=== PATIENT | male | born 1940 ===

== ENCOUNTER 2017-01-01 05:13 | Day surgery (SDC) | payer MEDICARE, MEDICAID ==
--- NOTE | 2016-12-31 16:30 | Pre-op HX & Phy Repo 2 SIG ---
DATE OF ADMISSION: 01/01/2017 DATE OF SURGERY: 01/01/2017. PREOPERATIVE DIAGNOSIS: Dense epiretinal membrane, left eye. BRIEF NOTE: This is a first [place] admission for this patient who is a very nice 76-year-old gentleman with decreased vision in the left eye related to a macular pucker. PAST OCULAR HISTORY: Remarkable for cataract surgery done in the left eye in 09/2014. He noted the vision did not significantly improve and on examination has been found to have a dense epiretinal membrane. PAST MEDICAL HISTORY: Negative for diabetes and hypertension according to the patient. ALLERGIES: He has no allergies. SOCIAL HISTORY: He does not smoke and drinks occasionally. MEDICATIONS: He is currently on topical Durezol and Cipro ophthalmic drops. He claims taking no systemic medications. 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 PHYSICAL EXAMINATION: EYES: Best vision at the time of admission was 20/80 in the right eye and 20/200 in the left with pressures of 11 and 12. The anterior segment on the right showed a moderately dense nuclear cataract. The left showed a posterior chamber lens in good position. There was no rubeosis. Fundus exam of the right eye appeared benign. The left fundus showed a dense epiretinal membrane with associated edema. The periphery was benign. General physical examination will be done by Dr. Mustafa. ASSESSMENT: Dense epiretinal membrane left eye with retinal thickening. PLAN: The plan is to perform a pars plana vitrectomy with full CT assisted membrane and ILM peeling. The risks and benefits of surgery have been gone over with the patient with potential infection, hemorrhage, glaucoma, lack of visual improvement, and the possibility of loss of the eye. The risk of anesthesia was discussed. The patient understands, consents to the surgery, which will be performed on tomorrow morning. Jessee Morrell M.D. DR: DAVID JOB#: [id number] CC:
[2017-01-01] VITALS (10 sets, daily range): BP systolic 110–128; BP diastolic 56–79
[~2017-01-01] VITALS: Ht 157.5 cm; Wt 54.4 kg
[~2017-01-01 05:13] MED LIST: Cyclopentolate 1% Opth Sol 2ml LEFT EYE SCH; Flurbiprofen 0.03% Opth Sol 2.5ml LEFT EYE SCH; Indocyanine Green 25mg Inj INJ ONE; NKM; Phenylephrine 2.5% Op 2ml Soln LEFT EYE SCH; Pred Forte 1% Opth Susp 1ml LEFT EYE SCH; Vigamox Opth Soln 3ml LEFT EYE SCH
[2017-01-01] MEDS ORDERED: Cyclopentolate 1% Opth Sol 2ml ONE (05:27)
[2017-01-01] MEDS ORDERED: Vigamox Opth Soln 3ml ONE (05:27)
[2017-01-01] MEDS ORDERED: Phenylephrine 2.5% Op 2ml Soln ONE (05:28)
[2017-01-01] MEDS ORDERED: Flurbiprofen 0.03% Opth Sol 2.5ml ONE (05:28)
[2017-01-01] MEDS: Cyclopentolate 1% Opth Sol 2ml LEFT EYE SCH ×3 (05:48→06:10)
[2017-01-01] MEDS: Vigamox Opth Soln 3ml LEFT EYE SCH ×3 (05:49→06:10)
[2017-01-01] MEDS: Phenylephrine 2.5% Op 2ml Soln LEFT EYE SCH ×3 (05:49→06:10)
[2017-01-01] MEDS: Flurbiprofen 0.03% Opth Sol 2.5ml LEFT EYE SCH ×3 (05:49→06:10)
--- NOTE | 2017-01-01 06:20 | Pre-Procedure Note/Attestation ---
Pre-Procedure Note/Attestation Complete Prior to Procedure Planned Procedure: left Procedure Narrative: PPV, ICG assisted membrane peel, kenalog inejction, possible gas-fluid exchange Left eye Indications for Procedure Pre-Operative Diagnosis: Epiretinal membrane with retinal thickening Left eye Attestation I attest that I discussed the nature of the procedure; its benefits; risks and complications; and alternatives (and the risks and benefits of such alternatives ), prior to the procedure, with the patient (or the patient's legal sales representative supervisor). I attest that, if there was a reasonable possibility of needing a blood transfusion, the patient (or the patient's legal sales representative supervisor) was given the [place] [facility] standardized written summary, pursuant to the Chance Flavia Blood Safety Act ([place] Health and Safety Code # 1645, as amended). I attest that I re-evaluated the patient just prior to the surgery and that there has been no change in the patient's H&P, except as documented below: RUBÉN MANDUJANO Jan 01, 2017 06:20
[2017-01-01] MEDS ORDERED: Ketorolac 30mg Inj IV ONE (06:30)
[2017-01-01 06:54] LABS: BASOPHILS % (AUTO) 1.7 % (0.0-2.0); EOSINOPHILS % (AUTO) 4.4 % (0.0-3.0); LYMPHOCYTES % (AUTO) 32.7 % (20.0-45.0); MEAN CORPUSCULAR HEMOGLOBIN 33.4 PG (27.0-31.0); MEAN CORPUSCULAR HGB CONC 36.1 G/DL (32.0-36.0); MEAN CORPUSCULAR VOLUME 93 FL (80-99); MEAN PLATELET VOLUME 8.5 FL (6.5-10.1); MONOCYTES % (AUTO) 8.1 % (1.0-10.0); NEUTROPHILS % (AUTO) 53.1 % (45.0-75.0); PLATELET COUNT 180 K/UL (150-450); RED BLOOD COUNT 4.67 M/UL (4.70-6.10); RED CELL DISTRIBUTION WIDTH 11.8 % (11.6-14.8); WHITE BLOOD COUNT 5.5 K/UL (4.8-10.8)
[2017-01-01 06:56] LABS: ANION GAP 8 mmol/L (5-15); CALCIUM 8.7 MG/DL (8.5-10.1); CARBON DIOXIDE 25 MMOL/L (21-32); CHLORIDE 106 MMOL/L (98-107); CREATININE 0.7 MG/DL (0.55-1.30); SODIUM 139 MMOL/L (136-145)
[2017-01-01] MEDS ORDERED: Indocyanine Green 25mg Inj INJ ONE (07:00)
[2017-01-01] MEDS ORDERED: BSS 500ml btl ONE (07:03)
[2017-01-01] MEDS ORDERED: Dexamethasone 4mg/ml vial ONE (07:04)
[2017-01-01] MEDS ORDERED: Tetracaine 0.5% Opth 4ml Soln ONE (07:04)
[2017-01-01] MEDS ORDERED: Maxitrol Opth Oint 3.5gm ONE (07:04)
[2017-01-01] MEDS ORDERED: Kenalog-40 1ml Vial ONE (07:04)
[2017-01-01] MEDS ORDERED: Lidocaine 2% MPF 5ml Vial INJ ONE (07:05)
[2017-01-01] MEDS ORDERED: Triamcinolone 40mg/ml PF Vial ONE (07:05)
[2017-01-01] MEDS ORDERED: EPINEPHrine 1mg/1ml Amp ONE (07:05)
[2017-01-01] MEDS ORDERED: Sodium Hyaluronate 10 mg/ml 0.85ml ONE (07:05)
[2017-01-01] MEDS ORDERED: Bupivacaine 0.75% 30ml vial INJ ONE (07:05)
[2017-01-01] MEDS ORDERED: Povidone-Iodine 5% opth solution ONE (07:05)
[2017-01-01] MEDS ORDERED: BSS 15ml BTL ONE (07:05)
[2017-01-01] MEDS ORDERED: Goniosol 2.5% Opth Soln - 15ml ONE (07:06)
[2017-01-01] MEDS ORDERED: LR 1000ml ONE (07:25)
[2017-01-01] MEDS ORDERED: Propofol 200mg/20ml IV ONE (07:25)
[2017-01-01] MEDS ORDERED: Sterile Water Irrig 1000ml IRRIG ONE (07:25)
[2017-01-01] MEDS ORDERED: NS Irrig 1000ml ONE (07:25)
[2017-01-01] MEDS ORDERED: Midazolam 2mg/2ml Inj ONE (07:25)
[2017-01-01] MEDS ORDERED: Kenalog-10 5ml Inj ONE (07:46)
[2017-01-01] MEDS ORDERED: Pred Forte 1% Opth Susp 1ml LEFT EYE ONE (08:00)
--- NOTE | 2017-01-01 08:00 | Anethesia Preoperative Eval ---
Anesthesia Pre-op PMH/ROS General Date of Evaluation: Jan 01, 2017 Time of Evaluation: 07:25 Anesthesiologist: Thuy ASA Score: ASA 2 Mallampati Score Class I : Soft palate, uvula, fauces, pillars visible Class II: Soft palate, uvula, fauces visible Class III: Soft palate, base of uvula visible Class IV: Only hard plate visible Mallampati Classification: Class II Surgeon: Petros Diagnosis: left eye macular pucker Surgical Procedure: Left eye pars plana vitrectomy Anesthesia History: none Family History: no anesthesia problems Allergies: Coded Allergies: No Known Allergies (Unverified , 12/11/16) Medications: see eMAR Past Medical History Cardiovascular: Denies: HTN, CAD, CT, valve dz, arrhythmia, other Pulmonary: Denies: asthma, COPD, AFTAB, other Gastrointestinal/Genitourinary: Denies: GERD, CRI, ESRD, other Neurologic/Psychiatric: Reports: depression/anxiety, Denies: dementia, CVA, TIA, other Endocrine: Denies: DM, hypothyroidism, steroids, other HEENT: Reports: cataract (L) Hematology/Immune: Reports: bleeding disorder - nose bleeds , Denies: anemia, DVT, other Musculoskeletal/Integumentary: Reports: OA Other: other - old vascular disease, amputations related to that Anesthesia Pre-op Phys. Exam Physician Exam Last Vital Signs Date Time Temp Pulse Resp B/P (MAP) Pulse Ox O2 Delivery O2 Flow Rate FiO2 01/01/17 06:00 97.3 60 20 110/76 97 Room Air Constitutional: NAD Neurologic: CN 2-12 intact Cardiovascular: RRR Respiratory: CTA Gastrointestinal: S/NT/ND Airway Exam Mallampati Score: Class II MO: full ROM: full Teeth: missing Dentures: upper, lower Anesthesia Pre-op A/P Labs Hematology Test 01/01/17 05:45 White Blood Count 5.5 K/UL (4.8-10.8) Red Blood Count 4.67 M/UL (4.70-6.10) L Hemoglobin 15.6 G/DL (14.2-18.0) Hematocrit 43.3 % (42.0-52.0) Mean Corpuscular Volume 93 FL (80-99) Mean Corpuscular Hemoglobin 33.4 PG (27.0-31.0) H Mean Corpuscular Hemoglobin Concent 36.1 G/DL (32.0-36.0) H Red Cell Distribution Width 11.8 % (11.6-14.8) Platelet Count 180 K/UL (150-450) Mean Platelet Volume 8.5 FL (6.5-10.1) Neutrophils (%) (Auto) 53.1 % (45.0-75.0) Lymphocytes (%) (Auto) 32.7 % (20.0-45.0) Monocytes (%) (Auto) 8.1 % (1.0-10.0) Eosinophils (%) (Auto) 4.4 % (0.0-3.0) H Basophils (%) (Auto) 1.7 % (0.0-2.0) Chemistry Test 01/01/17 05:45 Sodium Level 139 MMOL/L (136-145) Potassium Level 5.0 MMOL/L (3.5-5.1) Chloride Level 106 MMOL/L (98-107) Carbon Dioxide Level 25 MMOL/L (21-32) Anion Gap 8 mmol/L (5-15) Blood Urea Nitrogen 17 mg/dL (7-18) Creatinine 0.7 MG/DL (0.55-1.30) Estimat Glomerular Filtration Rate mL/min (>60) Glucose Level 93 MG/DL (74-106) Calcium Level 8.7 MG/DL (8.5-10.1) Studies Pre-op Studies: EKG - NSR 66 BPM Risk Assessment & Plan Plan: MAC Status Change Before Surgery: No Pre-Antibiotics Given Within 1 Hr of Incision: Shamika Headley CRNA Jan 01, 2017 08:00
--- NOTE | 2017-01-01 08:00 | Immediate Post-Op Evaluation ---
Immediate Post-Op Evalulation Immediate Post-Op Evalulation Date of Evaluation: Jan 01, 2017 Time of Evaluation: 08:16 IV Fluids: LR Blood Products: 0 Estimated Blood Loss: 0 Urinary Output: 0 Blood Pressure Systolic: 123 Blood Pressure Diastolic: 73 Pulse Rate: 64 Respiratory Rate: 20 O2 Sat by Pulse Oximetry: 100 Temperature (Fahrenheit): 97.5 Pain Score (1-10): 0 Nausea: No Vomiting: No Patient Status: awake, reacts Hydration Status: adequate Given Within 1 Hr of Incision: Shamika Headley CRNA Jan 01, 2017 08:00
--- NOTE | 2017-01-01 08:01 | 48 Hour Post Anesthesia Eval ---
Post Anesthesia Evaluation Date of Evaluation: Jan 01, 2017 Time of Evaluation: 08:29 Blood Pressure Systolic: 115 0: 68 Pulse Rate: 62 Respiratory Rate: 18 Temperature (Fahrenheit): 97.5 O2 Sat by Pulse Oximetry: 100 Airway: patent Nausea: No Vomiting: No Pain Intensity: 0 Hydration Status: adequate Mental Status/LOC: patient returned to baseline Follow-up care needed: patient intructions given Shamika Daley CRNA Jan 01, 2017 08:01
--- NOTE | 2017-01-01 10:32 | Brief Operative Note ---
Immediate Post Operative Note Operative Note Chief Complaint: Blurred and distorted vision Left eye Pre-op Diagnosis: Epiretinal membrane with retinal thickening Left eye Procedure: PPV, ICG assisted membrane peel, Kenalog injection Left eye Post-op Diagnosis: same as pre-op Surgeon: Petrso Financial Reporting Specialist: Aditya Haynes MD Anesthesiologist: Socorro Daley CRNA Anesthesia: MAC Specimen: none Complications: none Condition: stable Fluids: None Estimated Blood Loss: none Drains: none Implant(s) used?: No RUBÉN MANDUJANO Jan 01, 2017 10:32
--- NOTE | 2017-01-01 15:20 | Cardiology Report ---
APPROVED REPORT EKG Measurement Heart [id number] [place] [id number] Normal sinus rhythm Early repolarization Normal ECG
--- NOTE | 2017-01-02 16:00 | Operative Note - Dictated ---
DATE OF OPERATION: 01/01/2017 PREOPERATIVE DIAGNOSIS: Dense macular pucker, left eye. PROCEDURES PERFORMED: 1. Pars plana vitrectomy. 2. ICG assisted membrane peel. 3. Kenalog injection, left eye. SURGEON: Jessee Morrell M.D. J2EE ARCHITECT: Aditya Haynes M.D. ANESTHESIOLOGIST: Nurse snorkelling instructorThuy. JUSTIFICATION FOR SURGERY: This 76-year-old gentleman complained of distorted vision, was found to have a dense epiretinal membrane with retinal thickening and edema. BRIEF NOTE: The patient was brought to the operating room, placed on operating room table in supine position. After a time-out was performed and agreed upon by the staff, initial monitoring secured by nurseThuy he was subjected to retrobulbar and Van Lint blocks in the standard way. When the blocks taken effect, he was prepped and draped in normal manner. A lid speculum was inserted into the left eye. Using a 23-gauge trocar system, cannulas were placed in all except infranasal quadrant. Infusion secured inferotemporally. Vitrectomy was begun posterior to the lens implant. Adhesions were removed from the implant and the vitreous phase was carried further peripherally and posteriorly leaving a small vitreous skirt. The posterior hyaloid had dislocated previously and was removed. A posterior viewing lens was inserted and a dense epiretinal membrane was noted on the macula. A single drop of ICG dye as well as a drop of Kenalog were introduced to identify and stain the internal limiting lamina and membrane. The membrane was engaged near the papillomacular bundle and gently elevated with ILM forceps and removed. One additional drops stain revealed opening in the ILM and this was engaged in an area roughly 2.5 disc diameter in size, it was cleared involving the macula. No problems were encountered. The macula did not appear to [place] a macular hole. Scleral depression was then done. No peripheral breaks, tears, or detachments were seen. A small amount of peripheral hydrated vitreous was removed. The two superior cannulas were removed from the eye and the sclerotomy was closed with 8-0 Vicryl. The infusion line was disengaged and through the infusion cannula 1 mg of Kenalog was injected. The eye was reinflated and this cannula was also removed. The closure was performed here with 8-0 Vicryl suture. Subconjunctival Decadron and gentamicin were then injected and Maxitrol and atropine ointments were instilled. The eye was patched and shielded. The patient taken to recovery in excellent condition. There were no complications. Jessee Morrell M.D. DR: Tati JOB#: [id number] CC: Jessee Morrell M.D.; Fax#: [phone] Aditya Haynes M.D.;
--- NOTE | 2017-01-06 10:15 | Pre-op HX & Phy Repo 2 SIG ---
DATE OF ADMISSION: 01/01/2017 PRESURGICAL INTERNAL MEDICINE HISTORY AND PHYSICAL REASON FOR EVALUATION: I was asked by Dr. Jessee Morrell to see this 76-year-old male, who is going for elective surgery on his left eye. The patient has a macular pucker in the left eye. Please see full Ophthalmology History and Physical by Dr. Jessee Morrell. The patient was evaluated. Chart was reviewed. PAST MEDICAL HISTORY AND REVIEW OF SYSTEMS: Remarkable for depression, history of , and dizziness. No history of hypertension or diabetes. No history of thyroid problem. Denies history of stroke or seizures. No heart attack. No GI bleeding or gastritis. No heartburn. No thyroid problem. No renal failure or anemia. PAST SURGICAL HISTORY: Remarkable for both three fingers amputee. MEDICATIONS: None. ALLERGIES: Not known. SOCIAL HISTORY: Denies history of tobacco use, drug or alcohol use heavy in the past. No street drugs. FAMILY HISTORY: Mother had a cancer and father was killed. PHYSICAL EXAMINATION: GENERAL: The patient is alert 76-year-old male. VITAL SIGNS: Blood pressure 147/76, temperature 97.3 degrees, heart rate 60 and regular , O2 saturation 96% on room air, and respirations 20. SKIN: Dry, clear, warm. No ulcer or pigmentation. . HEENT: Head, normocephalic. Ears, clear. No discharge. Eyes, full description per Dr. Jessee Morrell. Mouth is moist and clear. Absence of the teeth. No dentures. NECK: Supple. No jugular vein distention. Carotids are 2+. Trachea midline. CHEST: No deformity or asymmetry. LUNGS: No rales or rhonchi. HEART: Regular rate, sinus. No murmur. No S3 or S4. ABDOMEN: Soft and benign. Liver and spleen not enlarged. EXTREMITIES: No peripheral edema or varicose vein. Absent of 3 fingers on the left hand. GENITOURINARY: Moderate dysuria. No CVA tenderness. NERVOUS SYSTEM: No tremor or nystagmus. LABORATORY AND DIAGNOSTIC DATA: EKG, normal sinus rhythm at 61 per minute. . The patient did not eat or drink from 9 p.m. yesterday . IMPRESSION: 1. Macular pucker, left eye. 2. Left finger amputee. 3. Depression. 4. History of chronic back pain. 5. History of gastritis. PLAN: Pars plana vitrectomy, 23 G membrane peeling, left eye per Dr. Jessee Morrell. CONCLUSION: The patient's vital signs stable. EKG is normal sinus rhythm. The patient did not eat or drink from 9 p.m. yesterday. The patient's condition optimized for surgery. Thank you very much, Dr. Morrell, for the privilege to participate in the presurgical care of this interesting patient. Yuri Mustafa M.D. DR: SHAHANA JOB#: [id number] CC:
== END 2017-01-01 09:50 | disposition home or self-care (01) ==
LOC: SUR 05:13
DX: H35.372 Puckering of macula, left eye (principal); F32.9 Major depressive disorder, single episode, unspecified; F41.9 Anxiety disorder, unspecified; Z80.9 Family history of malignant neoplasm, unspecified; M19.90 Unspecified osteoarthritis, unspecified site
CPT/HCPCS: 36415; 67025; 67042; 80048; 85025; 93005; J0171; J1100; J2250; J2704; J3301; J3470; J3490; J7120; 94003; 94150; J3300